=== PATIENT | female | born 1985 | race Caucasian/White ===

== ENCOUNTER 2020-08-07 14:33 | Emergency (ER) | payer MEDICAID ==
[2020-08-07 14:39] VITALS: RESP 18
[2020-08-07] MEDS ORDERED: SODIUM CHLORIDE 0.9% 1,000 ML IV STA (14:54)
--- NOTE | 2020-08-07 15:12 | ED ---
Abdominal Pain HPI - General Chief Complaint: Abdominal Pain Stated Complaint: abd pain, vomiting Time Seen by Provider: 08/07/20 14:47 Source: patient, RN notes reviewed Mode of arrival: ambulatory Limitations: no limitations - History of Present Illness Initial Comments: Patient is a 34-year-old female that presents to emergency department complaining of right lower quadrant pain with nausea and vomiting starting today. She notes that she woke up had some abdominal discomfort in the right lower quadrant became nauseous and had several episodes of vomiting. She notes that she went to her primary care who then told her to come emergency room to get evaluated for possible appendicitis. Patient was in no apparent distress or pain while sitting up in bed during the exam interview. She noted that her pain was approximately a 2 out of 10 and declined the need for any pain medication at this time. She denied any chest pain shortness breath headache diarrhea constipation fever fatigue chills. She did note that she has had gallbladder and pancreas issues in the past. - Related Data Home Medications Medication Instructions Recorded Confirmed ARIPiprazole [Abilify] 10 mg PO DAILY 08/07/20 08/07/20 Albuterol Inhaler [Ventolin Hfa 2 puff INHALATION RT-QID PRN 08/07/20 08/07/20 Inhaler] Desvenlafaxine [Pristiq ER] 100 mg PO DAILY 08/07/20 08/07/20 Ferrous Sulfate [Feosol] 325 mg PO DAILY 08/07/20 08/07/20 Methylphenidate HCl [Ritalin] 20 mg PO BID 08/07/20 08/07/20 Topiramate [Topamax] 100 mg PO HS 08/07/20 08/07/20 hydroCHLOROthiazide [Hydrodiuril] 25 mg PO DAILY PRN 08/07/20 08/07/20 Allergies Allergy/AdvReac Type Severity Reaction Status Date / Time erythromycin base Allergy Rash/Hives Verified 08/07/20 16:24 Review of Systems ROS Statement: Those systems with pertinent positive or pertinent negative responses have been documented in the HPI. ROS Other: All systems not noted in ROS Statement are negative. Past Medical History Past Medical History: No Reported History History of Any Multi-Drug Resistant Organisms: None Reported Past Surgical History: Cholecystectomy Past Anesthesia/Blood Transfusion Reactions: No Reported Reaction Past Psychological History: Depression Smoking Status: Never smoker Past Alcohol Use History: None Reported Past Drug Use History: None Reported - Past Family History Father Family Medical History: No Reported History General Exam Limitations: no limitations General appearance: alert, in no apparent distress Head exam: Present: atraumatic, normocephalic, normal inspection Eye exam: Present: normal appearance, PERRL, EOMI. Absent: scleral icterus, conjunctival injection, periorbital swelling Neck exam: Present: normal inspection Respiratory exam: Present: normal lung sounds bilaterally. Absent: respiratory distress, wheezes, rales, rhonchi, stridor Cardiovascular Exam: Present: regular rate, normal rhythm, normal heart sounds. Absent: systolic murmur, diastolic murmur, rubs, gallop, clicks GI/Abdominal exam: Present: soft, tenderness (Right lower quadrant to moderate palpation,), normal bowel sounds. Absent: distended, guarding, rebound, rigid Extremities exam: Present: normal inspection, full ROM, normal capillary refill. Absent: tenderness, pedal edema, joint swelling, calf tenderness Neurological exam: Present: alert, oriented X3 Psychiatric exam: Present: normal affect, normal mood Skin exam: Present: warm, dry, intact, normal color. Absent: rash Course Vital Signs 08/07/20 14:36 Temperature 97.9 F Pulse Rate 83 Respiratory 18 Rate Blood Pressure 105/69 O2 Sat by Pulse 96 Oximetry Medical Decision Making - Medical Decision Making 34-year-old female complaining of right lower quadrant pain with nausea and vomiting times one. Labs, 1 L normal saline, CT of the abdomen and pelvis ordered. Patient declined need for any pain medication or nausea medication at this time. Labs: White blood cells 11.[address] negative for appendicitis does not show any inflammatory processes. CT did show a 1.8; the right ovarian cyst. Case discussed with Dr. Malave, patient can discharge home in stable condition with follow-up primary care. - Lab Data Result diagrams: 08/07/20 15:06 08/07/20 15:06 Lab Results 08/07/20 08/07/20 08/07/20 Range/Units 15:06 15:06 15:06 WBC 11.9 H (3.8-10.6) k/uL RBC 4.40 (3.80-5.40) m/uL Hgb 12.9 (11.4-16.0) gm/dL Hct 38.2 (34.0-46.0) % MCV 86.9 (80.0-100.0) fL MCH 29.2 (25.0-35.0) pg MCHC 33.6 (31.0-37.0) g/dL RDW 14.5 (11.5-15.5) % Plt Count 259 (150-450) k/uL MPV 6.9 Neutrophils % 81 % Lymphocytes % 14 % Monocytes % 3 % Eosinophils % 1 % Basophils % 0 % Neutrophils # 9.7 H (1.3-7.7) k/uL Lymphocytes # 1.6 (1.0-4.8) k/uL Monocytes # 0.4 (0-1.0) k/uL Eosinophils # 0.2 (0-0.7) k/uL Basophils # 0.0 (0-0.2) k/uL Sodium (137-145) mmol/L Potassium (3.5-5.1) mmol/L Chloride (98-107) mmol/L Carbon Dioxide (22-30) mmol/L Anion Gap mmol/L BUN (7-17) mg/dL Creatinine (0.52-1.04) mg/dL Est GFR (CKD-EPI)AfAm (>60 ml/min/1.73 sqM) Est GFR (CKD-EPI)NonAf (>60 ml/min/1.73 sqM) Glucose (74-99) mg/dL Calcium (8.4-10.2) mg/dL Total Bilirubin (0.2-1.3) mg/dL AST (14-36) U/L ALT (4-34) U/L Alkaline Phosphatase (38-126) U/L Total Protein (6.3-8.2) g/dL Albumin (3.5-5.0) g/dL Amylase (30-110) U/L Lipase (23-300) U/L Urine Color Yellow Urine Appearance Cloudy H (Clear) Urine pH 7.0 (5.0-8.0) Ur Specific [place] 1.030 (1.001-1.035) Urine Protein Trace H (Negative) Urine Glucose (UA) Negative (Negative) Urine Ketones Trace H (Negative) Urine Blood Negative (Negative) Urine Nitrite Negative (Negative) Urine Bilirubin Negative (Negative) Urine Urobilinogen <2.0 (<2.0) mg/dL Ur Leukocyte Esterase Small H (Negative) Urine RBC 2 (0-5) /hpf Urine WBC 8 H (0-5) /hpf Ur Squamous Epith Cells 6 H (0-4) /hpf Urine Bacteria Rare H (None) /hpf Urine Mucus Few H (None) /hpf Urine HCG, Qual Not Detected (Not Detectd) 08/07/20 Range/Units 15:06 WBC (3.8-10.6) k/uL RBC (3.80-5.40) m/uL Hgb (11.4-16.0) gm/dL Hct (34.0-46.0) % MCV (80.0-100.0) fL MCH (25.0-35.0) pg MCHC (31.0-37.0) g/dL RDW (11.5-15.5) % Plt Count (150-450) k/uL MPV Neutrophils % % Lymphocytes % % Monocytes % % Eosinophils % % Basophils % % Neutrophils # (1.3-7.7) k/uL Lymphocytes # (1.0-4.8) k/uL Monocytes # (0-1.0) k/uL Eosinophils # (0-0.7) k/uL Basophils # (0-0.2) k/uL Sodium 137 (137-145) mmol/L Potassium 4.1 (3.5-5.1) mmol/L Chloride 110 H (98-107) mmol/L Carbon Dioxide 25 (22-30) mmol/L Anion Gap 2 mmol/L BUN 12 (7-17) mg/dL Creatinine 0.76 (0.52-1.04) mg/dL Est GFR (CKD-EPI)AfAm >90 (>60 ml/min/1.73 sqM) Est GFR (CKD-EPI)NonAf >90 (>60 ml/min/1.73 sqM) Glucose 89 (74-99) mg/dL Calcium 8.6 (8.4-10.2) mg/dL Total Bilirubin 0.4 (0.2-1.3) mg/dL AST 23 (14-36) U/L ALT 22 (4-34) U/L Alkaline Phosphatase 94 (38-126) U/L Total Protein 5.3 L (6.3-8.2) g/dL Albumin 3.1 L (3.5-5.0) g/dL Amylase 34 (30-110) U/L Lipase 45 (23-300) U/L Urine Color Urine Appearance (Clear) Urine pH (5.0-8.0) Ur Specific [place] (1.001-1.035) Urine Protein (Negative) Urine Glucose (UA) (Negative) Urine Ketones (Negative) Urine Blood (Negative) Urine Nitrite (Negative) Urine Bilirubin (Negative) Urine Urobilinogen (<2.0) mg/dL Ur Leukocyte Esterase (Negative) Urine RBC (0-5) /hpf Urine WBC (0-5) /hpf Ur Squamous Epith Cells (0-4) /hpf Urine Bacteria (None) /hpf Urine Mucus (None) /hpf Urine HCG, Qual (Not Detectd) - Radiology Data Radiology results: report reviewed, image reviewed CT of the abdomen and pelvis: Right ovarian cyst. Left peripelvic cyst. Nonobstructing renal stone in the mid inferior pole left kidney. Disposition Clinical Impression: Abdominal pain, Ovarian cyst Disposition: HOME SELF-CARE Condition: Stable Instructions (If sedation given, give patient instructions): Abdominal Pain (ED) Additional Instructions: Please return to the Emergency Department if symptoms worsen or any other concerns. Follow-up with primary care in next 3-5 days. Increase oral fluid intake. Take Tylenol and/or Motrin as needed for pain control. Is patient prescribed a controlled substance at d/c from ED?: No Referrals: Anny Gates DO [Primary Care Provider] - 1-2 days Time of Disposition: 16:55
[2020-08-07 15:21] LABS: Basophils % (A) 0 %; Eosinophils # (A) 0.2 k/uL (0-0.7); Eosinophils % (A) 1 %; HCT 38.2 % (34.0-46.0); HGB 12.9 gm/dL (11.4-16.0); Lymphocytes # (A) 1.6 k/uL (1.0-4.8); Lymphocytes % (A) 14 %; MCH 29.2 pg (25.0-35.0); MCHC 33.6 g/dL (31.0-37.0); MCV 86.9 fL (80.0-100.0); Mean Platelet Volume 6.9; Monocytes # (A) 0.4 k/uL (0-1.0); Monocytes % (A) 3 %; Neutrophils # (A) 9.7 k/uL (1.3-7.7); Neutrophils % (A) 81 %; Platelet Count 259 k/uL (150-450); RDW 14.5 % (11.5-15.5); WBC 11.9 k/uL (3.8-10.6)
[2020-08-07 15:28] LABS: Appearance,Urine Cloudy (Clear); Bacteria,Urine Rare /hpf; Bilirubin,Urine Negative (Negative); Blood,Urine Negative (Negative); Color,Urine Yellow; Glucose,Urine (UA) Negative (Negative); Ketones,Urine Trace (Negative); Leukocyte Esterase,Urine Small (Negative); Mucus,Urine Few /hpf; Nitrite,Urine Negative (Negative); Protein,Urine Trace (Negative); RBC,Urine 2 /hpf (0-5); Squamous Epithelial Cell,Urine 6 /hpf (0-4); Urobilinogen,Urine <2.0 mg/dL (<2.0); WBC,Urine 8 /hpf (0-5)
[2020-08-07 15:34] LABS: ALT 22 U/L (4-34); AST 23 U/L (14-36); African American GFR (CKD) >90 (>60 ml/min/1.73 sqM); Albumin 3.1 g/dL (3.5-5.0); Alkaline Phosphatase 94 U/L (38-126); Amylase 34 U/L (30-110); Anion Gap 2 mmol/L; Blood Urea Nitrogen 12 mg/dL (7-17); Calcium 8.6 mg/dL (8.4-10.2); Carbon Dioxide 25 mmol/L (22-30); Chloride 110 mmol/L (98-107); Glucose 89 mg/dL (74-99); Lipase 45 U/L (23-300); Non-African American GFR(CKD) >90 (>60 ml/min/1.73 sqM); Potassium 4.1 mmol/L (3.5-5.1); Sodium 137 mmol/L (137-145); Total Bilirubin 0.4 mg/dL (0.2-1.3); Total Protein 5.3 g/dL (6.3-8.2)
--- NOTE | 2020-08-07 16:23 | CT ---
EXAMINATION TYPE: CT abdomen pelvis w con DATE OF EXAM: 08/07/2020 COMPARISON: None INDICATION: RLQ pain with N/V DLP: 862.9 mGycm, Automated exposure control for dose reduction was used. CONTRAST: 100 mL of Isovue 300. Study performed without Oral Contrast TECHNIQUE: Axial images were obtained from above the diaphragm to the pubic rami in the axial plane a t 5 mm thick sections. Reconstructed images are reviewed on the computer in the coronal plane. FINDINGS: Limited CT sections are obtained the lung bases. The lung bases are clear. CT ABDOMEN: Liver: Normal Spleen: Normal Pancreas: Normal Adrenal glands: The adrenal glands are normal. Gallbladder: Surgically absent Kidneys: No masses are evident.Nonobstructing renal stone is at the mid to inferior pole measuring 0. 3 cm. No hydroureter is evident. Left peripelvic cysts are present. No hydronephrosis is evident. De layed images were obtained through the kidneys, which remain unremarkable. Aorta: Normal Inferior vena cava: Normal. CT PELVIS: Loops of bowel within the abdomen and pelvis are normal. There are loops of bowel which are incom pletely distended or lack oral contrast limiting their evaluation. Appendix: Not identified. No suspicious dilated tubular structure or inflammatory changes are evident . Urinary bladder: Normal. Genitourinary structures: Uterus is prominent. There may be a right adnexal cyst measuring 1.8 cm. Osseous structures: No suspicious lytic or sclerotic lesions. IMPRESSIONS: 1. Right ovarian cyst. 2. Left peripelvic cysts. A nonobstructing renal stone is in the mid inferior pole left kidney.
[2020-08-07 17:11] VITALS: BP 102/57; PULSE 88; TEMP 97.7
== END 2020-08-07 17:12 | disposition home or self-care (01) ==
LOC: EC 14:33
DX: N83.201 Unspecified ovarian cyst, right side (principal); F32.9 Major depressive disorder, single episode, unspecified; Z90.49 Acquired absence of other specified parts of digestive tract
CPT/HCPCS: 36415; 74177; 80053; 81001; 81025; 82150; 83690; 85025; 96360; 96361; 99284

== ENCOUNTER 2021-04-25 09:10 | Observation (INO) | payer MEDICAID, OTHER ==
[2021-04-25] MEDS ORDERED: SODIUM CHLORIDE 0.9% 1,000 ML IV STA (09:40)
[2021-04-25] MEDS ORDERED: ACETAMINOPHEN TAB 500 MG TAB PO STA (09:40)
[2021-04-25] MEDS ORDERED: DIPH,PERTUS(ACELL)TETVAC-LF 0.5 ML VIAL IM ONE (09:49)
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
[2021-04-25 10:21] LABS: ALT 70 U/L (4-34); AST 46 U/L (14-36); African American GFR (CKD) >90 (>60 ml/min/1.73 sqM); Albumin 4.1 g/dL (3.5-5.0); Alkaline Phosphatase 134 U/L (38-126); Anion Gap 9 mmol/L; Blood Urea Nitrogen 11 mg/dL (7-17); Carbon Dioxide 23 mmol/L (22-30); Chloride 108 mmol/L (98-107); Glucose 101 mg/dL (74-99); Non-African American GFR(CKD) 88 (>60 ml/min/1.73 sqM); Potassium 3.7 mmol/L (3.5-5.1); Sodium 140 mmol/L (137-145); Total Bilirubin 0.6 mg/dL (0.2-1.3); Total Protein 7.3 g/dL (6.3-8.2)
[2021-04-25 10:23] LABS: Basophils # (A) 0.1 k/uL (0-0.2); Basophils % (A) 0 %; Eosinophils # (A) 0.2 k/uL (0-0.7); Eosinophils % (A) 2 %; HCT 42.8 % (34.0-46.0); HGB 13.4 gm/dL (11.4-16.0); Lymphocytes # (A) 0.9 k/uL (1.0-4.8); Lymphocytes % (A) 8 %; MCH 28.8 pg (25.0-35.0); MCHC 31.4 g/dL (31.0-37.0); MCV 91.8 fL (80.0-100.0); Mean Platelet Volume 7.2; Monocytes # (A) 0.5 k/uL (0-1.0); Monocytes % (A) 5 %; Neutrophils # (A) 9.4 k/uL (1.3-7.7); Neutrophils % (A) 84 %; Platelet Count 270 k/uL (150-450); RBC 4.66 m/uL (3.80-5.40); RDW 14.2 % (11.5-15.5); WBC 11.1 k/uL (3.8-10.6)
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
[2021-04-25 12:25] LABS: Appearance,Urine Cloudy (Clear); Bacteria,Urine Few /hpf; Bilirubin,Urine Negative (Negative); Blood,Urine Large (Negative); Color,Urine Yellow; Glucose,Urine (UA) Negative (Negative); Ketones,Urine 2+ (Negative); Leukocyte Esterase,Urine Small (Negative); Mucus,Urine Occasional /hpf; Nitrite,Urine Negative (Negative); Protein,Urine 1+ (Negative); RBC,Urine >182 /hpf (0-5); Specific Gravity,Urine 1.021 (1.001-1.035); Squamous Epithelial Cell,Urine <1 /hpf (0-4); Urobilinogen,Urine <2.0 mg/dL (<2.0); WBC,Urine 28 /hpf (0-5)
--- NOTE | 2021-04-25 12:41 | XR ---
EXAMINATION TYPE: XR chest 1V portable DATE OF EXAM: 04/25/2021 COMPARISON: NONE HISTORY: Chest pain TECHNIQUE: Single frontal view of the chest is obtained. FINDINGS: There is no focal air space opacity, pleural effusion, or pneumothorax seen. The cardiac silhouette size is within normal limits. The osseous structures are intact. IMPRESSION: 1. No acute process.
--- NOTE | 2021-04-25 12:41 | XR ---
EXAMINATION TYPE: XR Hip Complete RT DATE OF EXAM: 04/25/2021 CLINICAL HISTORY: pain TECHNIQUE: AP and frogleg views of the right hip are obtained. COMPARISON: None. FINDINGS: There is no acute fracture/dislocation evident. The joint space appears within normal li mits. The overlying soft tissue appears unremarkable. IMPRESSION: 1. There is no acute fracture or dislocation. ICD 10 NO FRACTURE, INITIAL EVALUATION
--- NOTE | 2021-04-25 12:47 | XR ---
EXAMINATION TYPE: XR knee complete bilateral DATE OF EXAM: 04/25/2021 CLINICAL HISTORY: pain TECHNIQUE: Three views of the right knee are obtained. COMPARISON: None. FINDINGS: There is no acute fracture/dislocation. The tri-compartment joint spaces appear within no rmal limits. The overlying soft tissue appears unremarkable. IMPRESSION: There is no acute fracture or dislocation.ICD 10 NO FRACTURE, INITIAL EVALUATION EXAMINATION TYPE: XR knee complete bilateral DATE OF EXAM: 04/25/2021 CLINICAL HISTORY: pain TECHNIQUE: Three views of the left knee are obtained. COMPARISON: None. FINDINGS: There is no acute fracture/dislocation. The tri-compartment joint spaces appear within no rmal limits. The overlying soft tissue appears unremarkable. IMPRESSION: There is no acute fracture or dislocation ICD 10 NO FRACTURE, INITIAL EVALUATION
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
[2021-04-25] MEDS ORDERED: ONDANSETRON 4 MG/2 ML VIAL IVP STA (14:38)
[2021-04-25] MEDS ORDERED: MORPHINE SULFATE 4 MG/ML SYRINGE IV STA (14:38)
[2021-04-25] MEDS ORDERED: ONDANSETRON 4 MG/2 ML VIAL IVP PRN ×2 (14:39→15:33)
[2021-04-25] MEDS ORDERED: NALOXONE 0.4 MG/ML 1 ML VIAL IV PRN (14:39)
[2021-04-25] MEDS ORDERED: SODIUM CHLORIDE 0.9% 1,000 ML IV SCH (14:45)
[2021-04-25] MEDS ORDERED: ACETAMINOPHEN TAB 325 MG TAB PO PRN (15:33)
[2021-04-25] MEDS ORDERED: MORPHINE SULFATE 4 MG/ML SYRINGE IVP PRN (15:33)
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
[2021-04-25] MEDS ORDERED: LACTATED RINGERS 1,000 ML IV SCH (15:45)
[2021-04-25 16:14] LABS: HCT 34.6 % (34.0-46.0); HGB 11.5 gm/dL (11.4-16.0); MCH 30.4 pg (25.0-35.0); MCHC 33.3 g/dL (31.0-37.0); MCV 91.2 fL (80.0-100.0); Mean Platelet Volume 7.4; Platelet Count 237 k/uL (150-450); RBC 3.79 m/uL (3.80-5.40); RDW 14.4 % (11.5-15.5); WBC 8.1 k/uL (3.8-10.6)
[2021-04-25] MEDS ORDERED: ARIPiprazole 10 MG TAB PO SCH (21:00)
[2021-04-25] MEDS ORDERED: DESVENLAFAXINE SUCCINATE 50 MG TAB.ER.24H PO SCH (21:00)
[2021-04-25] MEDS: MORPHINE SULFATE 4 MG/ML SYRINGE IV PRN (21:11)
[2021-04-25] MEDS: busPIRone HCl 5 MG TAB PO SCH (21:11)
[2021-04-25 22:08] LABS: Basophils % (A) 1 %; Eosinophils # (A) 0.2 k/uL (0-0.7); Eosinophils % (A) 3 %; HCT 37.8 % (34.0-46.0); HGB 12.4 gm/dL (11.4-16.0); Lymphocytes # (A) 1.2 k/uL (1.0-4.8); Lymphocytes % (A) 17 %; MCHC 32.9 g/dL (31.0-37.0); MCV 91.3 fL (80.0-100.0); Mean Platelet Volume 7.4; Monocytes # (A) 0.5 k/uL (0-1.0); Monocytes % (A) 8 %; Neutrophils # (A) 4.9 k/uL (1.3-7.7); Neutrophils % (A) 71 %; Platelet Count 252 k/uL (150-450); RBC 4.14 m/uL (3.80-5.40); RDW 14.4 % (11.5-15.5); WBC 6.9 k/uL (3.8-10.6)
[2021-04-26 02:56] VITALS: RESP 16
[2021-04-26] MEDS: MORPHINE SULFATE 4 MG/ML SYRINGE IV PRN ×2 (02:58→08:10)
[2021-04-26] MEDS: busPIRone HCl 5 MG TAB PO SCH (08:09)
[2021-04-26 08:16] VITALS: BP 132/71; PULSE 95; TEMP 98.8
[2021-04-26] MEDS ORDERED: ATOMOXETINE HCL 40 MG PO SCH (09:00)
[2021-04-26 09:12] LABS: Basophils % (A) 0 %; Eosinophils # (A) 0.3 k/uL (0-0.7); Eosinophils % (A) 5 %; HCT 38.7 % (34.0-46.0); HGB 12.2 gm/dL (11.4-16.0); Hypochromasia Slight; Lymphocytes # (A) 0.9 k/uL (1.0-4.8); Lymphocytes % (A) 17 %; MCH 29.1 pg (25.0-35.0); MCHC 31.5 g/dL (31.0-37.0); MCV 92.2 fL (80.0-100.0); Monocytes # (A) 0.4 k/uL (0-1.0); Monocytes % (A) 7 %; Neutrophils # (A) 3.5 k/uL (1.3-7.7); Neutrophils % (A) 68 %; Platelet Count 250 k/uL (150-450); RDW 14.8 % (11.5-15.5); WBC 5.1 k/uL (3.8-10.6)
[2021-04-26 09:30] LABS: ALT 58 U/L (4-34); AST 41 U/L (14-36); African American GFR (CKD) >90 (>60 ml/min/1.73 sqM); Albumin 3.3 g/dL (3.5-5.0); Alkaline Phosphatase 102 U/L (38-126); Anion Gap 4 mmol/L; Blood Urea Nitrogen 10 mg/dL (7-17); Calcium 8.1 mg/dL (8.4-10.2); Carbon Dioxide 24 mmol/L (22-30); Chloride 110 mmol/L (98-107); Glucose 111 mg/dL (74-99); Non-African American GFR(CKD) >90 (>60 ml/min/1.73 sqM); Sodium 138 mmol/L (137-145); Total Bilirubin 0.3 mg/dL (0.2-1.3); Total Protein 6.2 g/dL (6.3-8.2)
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
== END 2021-04-26 11:28 | disposition home or self-care (01) ==
LOC: EC 09:10 → 6NMEDSUR 14:54 → 3SCARD 15:27
PROVIDERS: ADMIT Surgery; ATTEND Surgery
DX: S70.01XA Contusion of right hip, initial encounter (principal); S16.1XXA Strain of muscle, fascia and tendon at neck level, initial encounter; S80.01XA Contusion of right knee, initial encounter; S80.02XA Contusion of left knee, initial encounter; R10.9 Unspecified abdominal pain; S60.511A Abrasion of right hand, initial encounter; N30.01 Acute cystitis with hematuria; F41.9 Anxiety disorder, unspecified; F32.A Depression, unspecified; M43.10 Spondylolisthesis, site unspecified; V89.2XXA Person injured in unspecified motor-vehicle accident, traffic, initial encounter; Y92.410 Unspecified street and highway as the place of occurrence of the external cause; Z79.899 Other long term (current) drug therapy; Z88.1 Allergy status to other antibiotic agents; Z90.49 Acquired absence of other specified parts of digestive tract
CPT/HCPCS: 96376 ×2; 90471; 96361; 96374; 96375; 99285; 36415; 86900; 86901; 80053 ×2; 85025 ×2; 85027; 85610; 86850; 81001; 81025; 87086; 73562; 73502; 71045; 72125; 74177; 90715; G0378 ×2; J2270 ×2; J2405; Q9967

== ENCOUNTER → 2021-05-22 | Outpatient (CLI) | payer MEDICAID, OTHER ==
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
== END | disposition home or self-care (01) ==
LOC: RADUSWWP 06:55
PROVIDERS: ATTEND Family Medicine
DX: S37.812A Contusion of adrenal gland, initial encounter (principal); N83.202 Unspecified ovarian cyst, left side; Z90.49 Acquired absence of other specified parts of digestive tract; V99.XXXA Unspecified transport accident, initial encounter
CPT/HCPCS: 76700; 76856

== ENCOUNTER → 2021-06-06 | Outpatient (CLI) | payer OTHER, MEDICAID ==
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
== END | disposition home or self-care (01) ==
LOC: RADCTMAIN 15:07
PROVIDERS: ATTEND Family Medicine
DX: R10.9 Unspecified abdominal pain (principal); Z87.828 Personal history of other (healed) physical injury and trauma
CPT/HCPCS: 74170; Q9967

== ENCOUNTER → 2021-06-27 | Outpatient (CLI) | payer MEDICAID, OTHER ==
--- NOTE | 2021-06-29 10:37 | US ---
EXAMINATION TYPE: US thyroid st tissue head/neck DATE OF EXAM: 06/27/2021 COMPARISON: NONE CLINICAL HISTORY: Z83.49 Family history elian disease. Difficulty swallowing GLAND SIZE: Right Lobe: 4.7 x 1.3 x 1.7 cm Overall Parenchyma: homogenous Left Lobe: 4.9 x 1.1 x 1.3 cm Overall Parenchyma: homogeneous Isthmus Thickness: 0.3 cm NODULES RIGHT: # of nodules measured on right: 1 1. 0.8 X 0.7 x 0.8 cm, lower mid, solid or almost completely solid, hypoechoic nodule, which is wid er than tall, with ill-defined margins, without echogenic foci. TR 4 Prior size: no previous LEFT: # of nodules measured on left: 0 ISTHMUS: # of nodules measured in the isthmus: 1 1. 0.6 X 0.4 x 0.6 cm solid or almost completely solid, hypoechoic nodule, which is wider than tall , with ill-defined margins, without echogenic foci. Prior size: no previous Bilateral neck scanned, no evidence of lymphadenopathy. IMPRESSION: Moderately suspicious nodule right lobe thyroid. Consider follow-up exam in one year. 2017 ACR TI-RADS LEVEL: TR-RADS 4 - Moderately Suspicious: Follow if > 1 cm, FNA if > 1.5 cm *Highest TI-RADS level nodule reported
== END | disposition home or self-care (01) ==
LOC: RADUSWWP 16:18
PROVIDERS: ATTEND Family Medicine
DX: R13.10 Dysphagia, unspecified (principal); Z83.49 Family history of other endocrine, nutritional and metabolic diseases
CPT/HCPCS: 76536

== ENCOUNTER → 2022-06-08 | Outpatient (CLI) | payer MEDICAID, OTHER ==
[2022-06-08 16:44] LABS: Basophils # (A) 0.04 X 10*3/uL (0.00-0.10); Basophils % (A) 0.5 %; Eosinophils # (A) 0.25 X 10*3/uL (0.04-0.35); Eosinophils % (A) 2.9 %; HCT 42.3 % (37.2-46.3); HGB 12.8 g/dL (12.0-15.0); Immature Grans, Automated 0.5 %; Lymphocytes # (A) 2.06 X 10*3/uL (0.90-5.00); Lymphocytes % (A) 23.8 %; MCH 27.1 pg (27.0-32.0); MCHC 30.3 g/dL (32.0-37.0); MCV 89.6 fL (80.0-97.0); Mean Platelet Volume 9.8 fL (9.5-12.2); Monocytes # (A) 0.53 X 10*3/uL (0.20-1.00); Monocytes % (A) 6.1 %; NRBC Per 100 WBC 0 /100 WBCS (0.0-0.0); Neutrophils # (A) 5.75 X 10*3/uL (1.80-7.70); Neutrophils % (A) 66.2 %; Platelet Count 330 X 10*3/uL (140-440); RBC 4.72 X 10*6/uL (4.10-5.20); RDW 14.9 % (11.5-14.5); WBC 8.67 X 10*3/uL (4.50-10.00)
[2022-06-08 17:05] LABS: African American GFR (CKD) 88.7 (60.0-200.0); Anion Gap 9.5 mmol/L (10.00-18.00); Blood Urea Nitrogen 12.4 mg/dL (9.0-27.0); Carbon Dioxide 25.1 mmol/L (20.0-27.5); Non-African American GFR(CKD) 76.5 (60.0-200.0); Potassium 4.5 mmol/L (3.5-5.5)
== END | disposition home or self-care (01) ==
LOC: LABPAT 09:15
PROVIDERS: ATTEND Obstetrics & Gynecology
DX: Z01.812 Encounter for preprocedural laboratory examination (principal); N39.3 Stress incontinence (female) (male); N80.03 Adenomyosis of the uterus
CPT/HCPCS: 36415; 80051; 82565; 84520; 85025; 87086

== ENCOUNTER 2022-06-16 05:53 | Observation (INO) | payer MEDICAID, OTHER ==
[2022-06-10 10:55] VITALS: BMI 31.8
--- NOTE | 2022-06-12 09:24 | P.HPOB ---
History of Present Illness H&P Date: 06/12/22 Chief Complaint: Abnormal uterine bleeding, stress incontinence Ms. Polk is a 36 year old who presents for surgical management of abnormal bleeding, adenomyosis, and stress urinary incontinence. She has regular monthly menses that are excessively heavy. She needs to change a maxi pad every 45 minutes on the heaviest day of flow. She denies intermenstrual bleeding. She has had a tubal ligation for contraception. She also complaints of stress incontinence with cough/sneeze/laugh/lifting. She has 2 accidents daily and wears 3 pads daily for leaks. She also complains or urge-related accidents every few days. She has a bulge in the vagina she call feel, this comes and goes. Pelvic ultrasound shows an anteverted uterus 6 x 4 cm. Adenomyosis is present. There is also a 1cm hyperechoic nodule noted in the left ovary that could represent a dermoid cyst versus a resolving corpus luteum cyst. Endometrial biopsy 03/16/22 was negative for dysplasia and malignancy. Pap smear March of 2022 was NILM, HPV negative Past Medical History Past Medical History: No Reported History Additional Past Medical History / Comment(s): OVARIAN CYST. adenomyosis. abnormal uterine bleeding. anxiety, depression History of Any Multi-Drug Resistant Organisms: None Reported Past Surgical History: Cholecystectomy, Tubal Ligation Additional Past Surgical History / Comment(s): D & C Past Anesthesia/Blood Transfusion Reactions: No Reported Reaction Smoking Status: Never smoker - Past Family History Father Family Medical History: No Reported History Medications and Allergies Home Medications Medication Instructions Recorded Confirmed Type Desvenlafaxine [Pristiq ER] 100 mg PO HS 08/07/20 06/10/22 History Brexpiprazole [Rexulti] 2 mg PO DAILY 06/10/22 06/10/22 History Methylphenidate HCl [Ritalin] 20 mg PO BID 06/10/22 06/10/22 History Allergies Allergy/AdvReac Type Severity Reaction Status Date / Time erythromycin base Allergy Rash/Hives Verified 06/10/22 10:46 Exam Focused physical exam is performed. Post-void residual 25cc. Normal external female genitalia. Normal vaginal vault without any defects. Normal-appearing cervix. Anteverted uterus, non-enlarged, non-tender. Assessment and Plan Assessment: 36 year old presenting for surgical management of AUB-A and OSCAR. Plan: Risks, benefits and alternatives for TVT Midurethral Sling discussed with the patient including pessary, kegels, pelvic floor therapy. Risks of procedure reviewed in detail including bleeding, infection, bladder perforation, urinary retention, urinary tract infection, and vaginal mesh erosion. Risks, benefits, alternatives to treat adenomyosis discussed including risk of bleeding, infection, damage to surrounding structures including bladder/bowels/urerters, risk of laparotomy, risk of oophotectomy, and postoperative VTE. Patient understands these risks and desires to proceed with RAVH, BS, TVT Midurethral Sling, and Cystoscopy. Time with Patient: Less than 30 (15 minutes)
[2022-06-16] MEDS ORDERED: LIDOCAINE 1% (10MG/ML) FOR IV START INTRADERMA PRN (06:25)
[2022-06-16] MEDS ORDERED: MIDAZOLAM 2 MG/2 ML VIAL IV PRN (06:25)
[2022-06-16] MEDS ORDERED: HYDROmorphone 0.5 MG/0.5 ML SYRINGE IVP PRN (06:25)
[2022-06-16] MEDS ORDERED: ONDANSETRON 4 MG/2 ML VIAL ONE (06:28)
[2022-06-16] MEDS ORDERED: MIDAZOLAM 2 MG/2 ML VIAL IVP ONE (06:48)
[2022-06-16] MEDS: LACTATED RINGERS 1,000 ML IV SCH ×3 (06:50→20:13)
[2022-06-16] MEDS ORDERED: DEXAMETHASONE SOD PHOSPHATE 4 MG/ML 1 ML VIAL IVP ONE (07:06)
[2022-06-16] MEDS ORDERED: diphenhydrAMINE 50 MG/ML 1 ML VIAL ONE (07:25)
[2022-06-16] MEDS ORDERED: GLYCOPYRROLATE 0.2 MG/ML 2 ML VIAL ONE (07:25)
[2022-06-16] MEDS ORDERED: MORPHINE SULFATE (PF) 0.3 MG/0.3 ML SYR ONE (07:25)
[2022-06-16] MEDS ORDERED: SUCCINYLCHOLINE CHLORIDE 200 MG/10 ML VIAL IV ONE (07:25)
[2022-06-16] MEDS ORDERED: NEOSTIGMINE 1 MG/ML 10 ML VIAL ONE (07:25)
[2022-06-16] MEDS ORDERED: ROCURONIUM 10 MG/ML (5 ML VIAL) IV ONE (07:25)
[2022-06-16] MEDS ORDERED: fentaNYL (PF) 50 MCG/ML 2 ML AMP ONE (07:25)
[2022-06-16] MEDS ORDERED: MIDAZOLAM 2 MG/2 ML VIAL ONE (07:25)
[2022-06-16] MEDS ORDERED: LIDOCAINE 2% INJ 20 MG/ML (2 ML VIAL) ONE (07:25)
[2022-06-16] MEDS ORDERED: PROPOFOL 10 MG/ML 20 ML VIAL IV ONE (07:25)
[2022-06-16] MEDS ORDERED: BUPIVACAINE (PF) 0.25% 30 ML VIAL SQ ONE ×2 (08:10→09:18)
[2022-06-16] MEDS ORDERED: GENTAMICIN 40 MG/ML 2 ML VIAL IRRIGATION ONE ×2 (08:11→09:19)
[2022-06-16] MEDS ORDERED: LACTATED RINGERS 1,000 ML IV ONE ×2 (09:38)
[2022-06-16] MEDS ORDERED: diphenhydrAMINE 50 MG/ML 1 ML VIAL IVP PRN (10:10)
[2022-06-16] MEDS ORDERED: IBUPROFEN 600 MG TAB PO PRN (10:10)
[2022-06-16] MEDS ORDERED: ONDANSETRON 4 MG/2 ML VIAL IVP PRN (10:10)
--- NOTE | 2022-06-16 10:30 | P.OP ---
Date of Procedure: 06/16/22 Preoperative Diagnosis: 1. Abnormal Uterine Bleeding 2. Adenomyosis 3. Stress Urinary Incontinence Postoperative Diagnosis: Same Procedure(s) Performed: Robotic assisted total laparoscopic hysterectomy, bilateral salpingectomy, TVT Midurethral Sling, and Cystoscopy Implants: Advantage Fit TVT Midurethral Sling Anesthesia: JOSELIN Surgeon: Ruth Ann Caro Theatre Instructor #1: Kathleen Ellis Estimated Blood Loss (ml): 200 IV fluids (ml): 1,000 Urine output (ml): 200 (clear) Pathology: other (uterus, cervix, and potions of bilateral fallopian tubes) Condition: stable Disposition: floor Indications for Procedure: This is a 36 year old female with abnormal uterine bleeding that did not improve with medications. Ultrasound showed adenomyosis. She also had stress urinary incontinence that was reproducible in the office. Post-void residual was noted to be 20 cc in the office. Risks, benefits and alternatives for TVT Midurethral Sling discussed with the patient including pessary, kegels, pelvic floor therapy. Risks of procedure reviewed in detail including bleeding, infection, bladder perforation, urinary retention, urinary tract infection, and vaginal mesh erosion. Risks, benefits, alternatives to treat adenomyosis discussed including risk of bleeding, infection, damage to surrounding structures including bladder/bowels/urerters, risk of laparotomy, risk of oophotectomy, and postoperative VTE. Patient understands these risks and desires to proceed with RAVMarce, BS, TVT Midurethral Sling, and Cystoscopy. Operative Findings: Normal pelvis and abdomen. Bulky uterus. Portions of bilateral fallopian tubes absent s/p tubal ligation. Grossly normal appearing ovaries bilaterally. Normal appearing appendix. No bladder injuries seen on cystoscopy from hysterectomy or TVT trocar placement. Bilateral ureteral jets visualized. Description of Procedure: Prior to the beginning of the procedure, the team paused to verify the patients identity, the procedure to be performed (in accordance with the consent,) and the correct side/site. The patient was positioned appropriately. All relevant images and results were properly labeled and displayed. We addressed antibiotic prophylaxis and fluids for irrigation as applicable to this patient. Any safety precautions were addressed. The patient was taken to the operating room where general anesthesia was induced without difficulty. She was then positioned in the dorsal lithotomy position [facility]. Positioning included placing her arms at her sides. After the patient was placed in what was felt to be a neurologically safe position, deep Trendelenburg position was tested prior to the operative procedure, to ensure that she would not move on the operating t able. The patient was then prepped and draped in the normal sterile fashion for a combined abdominovaginal surgery. A Sosa catheter was placed in the bladder for continuous drainage. Uterus was sounded to 10 cm. The Log[employer]ic manipulator was placed in the uterus for manipulation. Attention was then placed to the abdomen. 2 centimeters above the umbilicus, the abdomen was entered with the 8mm trocar under direct visualization. The abdomen was then insufflated to 15mmHg for the remainder of the case and correct placement inside of the abdomen was confirmed. There was no evidence of injury from the trocar placement. Visualization of the intraabdominal cavity showed normal pelvic anatomy without evidence of adhesions. The port sites for the remainder of the case were then measured out and placed under direct visualization. On the left side, one 8 mm robotic assist port and one 10 mm assist port were placed. On the right side, one 8 mm robotic port was placed. The [employer] robot was then brought to the operative field in a lateral docking style to the left of the patient and the robot was docked to the ports. All robotic instruments were brought into the pelvis under direct visualization with monopolar scissors in arm #3 and vessel sealer in arm #1. Bilateral ureters were visualized prior to starting the surgery. A portion of the right fallopian tube was ligated and cut away. This was removed from through the port site. The right uteroovarian ligement was cauterized and cut. The right round ligament was cauterized and cut. Broad ligament was opened and bladder flap created. This was repeated on the left side. The peritoneum of the bilateral broad ligaments was then taken down and monopolar cautery used to skeletonize the uterine arteries bilaterally. During the course of this dissection, the anterior leaf of the broad ligament was also taken down over the anterior aspect of the uterus and cervix to create a bladder flap. The bladder was then dissected off the cervix and upper vagina with the monopolar scissors and gentle blunt dissection. The bilateral uterine arteries were then cauterized and divided at the level of the internal cervical os. The monopolar cautery was used to incise the vaginal cuff. The uterus, along with the cervix was removed vaginally. Cuff was closed in with 0-Stratifix sutures. Surgicel was placed along the pedicles and vaginal cuff for bleeding prophylaxis. Excellent hemostasis was noted at this time. The robot was undocked from the trocars and brought out of the operative field. The remainder of the ports were removed, and the gas was allowed to escape. All skin incisions were closed with 4-0 Monocryl and dermabond. Attention was then turned to the TVT part of the procedure. Two sites were marked on the anterior abdominal wall with a marking pen, one 1 fingerbreadth to the left and the other 1 fingerbreadth to the right of the midline, just above the pubic bone.Two sites were marked on the anterior abdominal wall with a marking pen, one 1 fingerbreadth to the left and the other 1 fingerbreadth to the right of the midline, just above the pubic bone. Attention was now turned to the vaginal field where a 18-Haitian Sosa c atheter was already present, and the urine was drained. Retractors were used for visualization. The anterior vaginal wall over the location of the mid urethra was then injected with 1% marcaine in the mid portion of the vagina and the lateral aspects heading to the inferior surface of the pubic bone bilaterally. Two Allis clamps were then placed approximately 2 cm apart with the mid portion of the Allis clamps corresponding to the mid portion of the urethra as determined by palpation of the Sosa within the patient's urethra. A scalpel was then used to incise between the 2 Allis clamps, and Metzenbaum scissors were used to dissect the vaginal mucosa off the urethra heading to the inferior surface of the pubic bone bilaterally. The [employer] Advantage Fit TVT trocar coupled to the plastic introducer sheath was now placed through the right sided anterior vaginal wall channel, and the trocar was rotated through the right retropubic space with careful attention being paid to stay beneath and behind the pubic bone as it rotated through the space up to the previously made janey on the right anterior abdominal wall. The TVT trocar was uncoupled from the introducer sheath and the sheath was tagged and left in place. The TVT trocar was now placed into the second introducer sheath and positioned within the left anterior vaginal wall channel and rotated through the left retropubic space with careful attention being paid to stay beneath and behind the pubic bone as it rotated through this site up to the previously made janey on the left anterior abdominal wall. 70-degree cystourethroscope was used to confirm that there was no trocar placement trauma to the bladder from either side, and no trauma to the urethra. Bilateral ureteral jets were visualized. Therefore, the bladder was drained, and the mesh was brought through the abdominal wall site. The mesh was brought to sit underneath of the urethra without any tensioning at all as determined by a hemostat used as a spacer between the urethra and the sling. The hemostat as a spacer was used to stabilize the position of the mesh as plastic sheaths were removed through the abdominal wall site. The skin wounds were closed with the use of skin glue after trimming the mesh. The vaginal wound was closed with a running stitch of 3-0 Vicryl. 1-inch vaginal packing coated with Estrace was used to pack the vagina at the end of the case as a precautionary measure. Hemostasis was noted to be excellent throughout, and final sponge, instrument, and needle count was noted to be correct. The patient was moved back to the preoperative holding area in stable condition having tolerated the procedure well.
[2022-06-16] MEDS: KETOROLAC 15 MG/ML 1 ML VIAL IVP PRN ×2 (12:04→18:01)
[2022-06-16] MEDS: METOCLOPRAMIDE 5 MG/ML 2 ML VIAL IVP PRN (15:14)
[2022-06-17] MEDS: LACTATED RINGERS 1,000 ML IV SCH ×2 (04:08→07:22)
[2022-06-17 06:55] LABS: Basophils % (A) 0 %; Eosinophils % (A) 0 %; HCT 32.2 % (34.0-46.0); HGB 10.3 gm/dL (11.4-16.0); Lymphocytes # (A) 1.3 k/uL (1.0-4.8); Lymphocytes % (A) 14 %; MCH 28.4 pg (25.0-35.0); MCHC 31.9 g/dL (31.0-37.0); MCV 88.9 fL (80.0-100.0); Mean Platelet Volume 7.4; Monocytes # (A) 0.5 k/uL (0-1.0); Monocytes % (A) 6 %; Neutrophils % (A) 78 %; Platelet Count 249 k/uL (150-450); RBC 3.62 m/uL (3.80-5.40); RDW 14.8 % (11.5-15.5)
[2022-06-17] MEDS: ACETAMINOPHEN TAB 325 MG TAB PO PRN ×2 (07:21→14:04)
[2022-06-17] MEDS: METOCLOPRAMIDE 5 MG/ML 2 ML VIAL IVP PRN (07:21)
--- NOTE | 2022-06-17 07:28 | P.PN ---
Progress Note - Text Progress Note Date: 06/17/22 Postoperative day 1 status post robotic hysterectomy under general endotracheal anesthesia, and intrathecal morphine given for postoperative analgesia, patient doing well, but patient complaining of some headache, headache increased with the sitting position, discussed with the patient the option of doing epidural blood patch, but patient currently prefer to try conservative treatment caffeinated fluid/Motri,, vital signs stable , Assessment and plan= postop day 1 status post robotic hysterectomy and intrathecal morphine given for postoperative analgesia, questionable headache., We'll try conservative treatment first if failed then will do epidural blood patch
[2022-06-17] MEDS: KETOROLAC 15 MG/ML 1 ML VIAL IVP PRN (07:57)
--- NOTE | 2022-06-17 08:36 | P.PN ---
Subjective Progress Note Date: 06/17/22 Principal diagnosis: s/p robotic hysterectomy with bilateral salpingectomy, TVT midurethral sling, Cystoscopy Patient had severe nausea, vomiting, and headache overnight. Vomiting was not improved with zofran. Headache not resolved with motrin or tylenol. This morning she had reglad, toradol, and benadryl. She is feeling much better. She rates her headache a 2 and her nausea has resolved. Patient is eager to go home but I discussed that she must be able to tolerate PO, be able to ambulate without difficulty, and must be voiding adequately before discharge. Sosa was removed this morning but she has yet to void. She is not yet passing flatus. Vaginal spotting has been minimal. She denies chest pain, shortness of breath, pain/swelling in the legs, fevers or chills. Objective - Vital Signs Vital signs: Vital Signs Temp 97.9 F 06/17/22 01:49 Pulse 85 06/17/22 07:22 Resp 18 06/17/22 01:49 BP 100/67 06/17/22 01:49 Pulse Ox 97 06/17/22 07:22 FiO2 Intake & Output 06/16/22 06/17/22 06/17/22 18:59 06:59 18:59 Intake Total 1550 300 Output Total 800 410 Balance 750 -110 Weight 83.2 kg Intake: IV 1550 Oral 300 Output: Urine 600 400 Uretheral (Sosa) 100 Emesis 10 Estimated Blood Loss 200 Other: Voiding Method Indwelling Catheter - Exam Focused physical exam is performed. Patient is pleasant, in no apparent distress. Abdomen is soft, nontender. Hypoactive bowel sounds are noted. Incisions are clean, dry, and intact x6. Minimal pink discharge on menstrual pa d. Legs non-edematous and non-tender to palpation. - Labs CBC & Chem 7: 06/17/22 06:14 Labs: Abnormal Lab Results - Last 24 Hours (Table) 06/17/22 Range/Units 06:14 RBC 3.62 L (3.80-5.40) m/uL Hgb 10.3 L (11.4-16.0) gm/dL Hct 32.2 L (34.0-46.0) % Assessment and Plan Assessment: 36 year old presenting for surgical management of AUB-A and OSCAR now POD#1 s/p JORDYN LONG, TVT Midurethral Sling, and Cystoscopy. Plan: Patient not yet eligible for discharge. If voiding, ambulating, and tolerating PO this afternoon she may be discharged at that time. Otherwise, anticipate discharge home tomorrow. Encouraged ambulation and incentive spirometer use today. Time with Patient: Less than 30 (15 minutes)
[2022-06-17 09:07] VITALS: RESP 15
--- NOTE | 2022-06-17 13:09 | P.DS ---
Providers Date of admission: 06/16/22 10:00 Expected date of discharge: 06/17/22 Attending physician: Ruth Ann Caro MD Primary care physician: Anny Gates [facility] Course: 36 year old female who is postoperative day 1 s/p Robotic TLH, bilateral salpingectomy, TVT Midurethral Sling, and Cystoscopy. She had severe nausea and headache overnight on postoperative day 0. This afternoon she is feeling much better. She is ambulating, tolerating PO, voiding adequately and without difficulty. She denies chest pain, shortness of breath, pain/swelling in the legs. She desires discharge home. We discussed a lifting restriction of nothing heavier than 15 lbs for 4 weeks. She also needs to be on pelvic rest for 6 weeks. She is encouraged to call the office with any concerns or if she experiences heavy bleeding, severe pain, or recurrent nausea/vomiting. She will follow up in the office in 2 weeks for incision check. Assessment: 36 yo POD#1 s/p RATLH, BS, TVT, and Cystoscopy Patient Condition at Discharge: Good Plan - Discharge Summary Discharge Rx Participant: No New Discharge Prescriptions: No Action Desvenlafaxine [Pristiq ER] 100 mg PO HS Methylphenidate HCl [Ritalin] 20 mg PO BID Brexpiprazole [Rexulti] 2 mg PO DAILY Discharge Medication List Desvenlafaxine [Pristiq ER] 100 mg PO HS 08/07/20 [History] Brexpiprazole [Rexulti] 2 mg PO DAILY 06/10/22 [History] Methylphenidate HCl [Ritalin] 20 mg PO BID 06/10/22 [History] Follow up Appointment(s)/Referral(s): Ruth Ann Caro MD [STAFF PHYSICIAN] - 2 Weeks (post-op visit) Patient Instructions/Handouts: Laparoscopic Hysterectomy (DC), Bladder Sling for Women (DC) Activity/Diet/Wound Care/Special Instructions: No lifting heavier than 15 pounds for 4 weeks. Nothing in the vagina to include sexual intercourse for 6 weeks. Discharge Disposition: HOME SELF-CARE
[2022-06-17 14:38] VITALS: BP 103/65; PULSE 80; TEMP 98.6
== END 2022-06-17 14:25 | disposition home or self-care (01) ==
LOC: OR 05:53 → 4FBP 10:00
PROVIDERS: ADMIT Obstetrics & Gynecology; ATTEND Obstetrics & Gynecology
DX: N93.9 Abnormal uterine and vaginal bleeding, unspecified (principal); N39.3 Stress incontinence (female) (male); N94.6 Dysmenorrhea, unspecified; N85.2 Hypertrophy of uterus; N85.4 Malposition of uterus; R51.9 Headache, unspecified; R11.2 Nausea with vomiting, unspecified; F32.A Depression, unspecified; F41.9 Anxiety disorder, unspecified; Z79.899 Other long term (current) drug therapy; Z88.1 Allergy status to other antibiotic agents; Z98.51 Tubal ligation status; Z90.49 Acquired absence of other specified parts of digestive tract; Z98.890 Other specified postprocedural states
CPT/HCPCS: 57288; 58552; S2900; 81025; 85025; 86850; 86900; 86901; 88307

== ENCOUNTER 2024-05-29 07:29 | Emergency (ER) | payer MEDICAID, OTHER ==
[2024-05-29 07:36] VITALS: TEMP 97.9
[2024-05-29 07:46] VITALS: BP 120/60
--- NOTE | 2024-05-29 07:49 | ED ---
General Adult HPI - General Chief complaint: Chest Pain Stated complaint: Chest pain,Poss. UTI Time Seen by Provider: 05/29/24 07:30 Source: patient, RN notes reviewed, old records reviewed Mode of arrival: ambulatory Limitations: no limitations - History of Present Illness Initial comments: 38-year-old female presenting with lower abdominal discomfort, urinary frequency and urgency. Is been going on for several days. Patient has history of urinary incontinence and bladder sling. 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 She denies fever. She had reported a cough and some chest discomfort and she states she was exposed to RSV at her place of work. No difficulty breathing. Cough has improved. No nausea vomiting or diarrhea. - Related Data Home Medications Medication Instructions Recorded Confirmed Desvenlafaxine [Pristiq ER] 100 mg PO HS 08/07/20 06/16/22 Brexpiprazole [Rexulti] 2 mg PO DAILY 06/10/22 06/16/22 Methylphenidate HCl [Ritalin] 20 mg PO BID 06/10/22 06/16/22 Previous Rx's Medication Instructions Recorded oxyCODONE HCL [Roxicodone] 5 mg PO Q6HR PRN 3 Days #12 tab 06/18/22 Allergies Allergy/AdvReac Type Severity Reaction Status Date / Time erythromycin base Allergy Rash/Hives Verified 05/29/24 07:36 Review of Systems ROS Statement: Those systems with pertinent positive or pertinent negative responses have been documented in the HPI. ROS Other: All systems not noted in ROS Statement are negative. Past Medical History Past Medical History: No Reported History Additional Past Medical History / Comment(s): OVARIAN CYST. adenomyosis. abnormal uterine bleeding. anxiety, depression History of Any Multi-Drug Resistant Organisms: None Reported Past Surgical History: Cholecystectomy, Hysterectomy, Tubal Ligation Additional Past Surgical History / Comment(s): D & C, bladder sling, Past Anesthesia/Blood Transfusion Reactions: No Reported Reaction Past Psychological History: Anxiety, Depression Smoking Status: Vaper Past Alcohol Use History: None Reported Past Drug Use History: Marijuana - Past Family History Father Family Medical History: No Reported History General Exam Limitations: no limitations General appearance: alert, in no apparent distress Head exam: Present: atraumatic, normocephalic Eye exam: Present: normal appearance, PERRL ENT exam: Present: normal exam Neck exam: Present: normal inspection. Absent: tenderness, meningismus Respiratory exam: Present: normal lung sounds bilaterally. Absent: respiratory distress, wheezes Cardiovascular Exam: Present: regular rate, normal rhythm GI/Abdominal exam: Present: soft, tenderness (Suprapubic). Absent: distended, guarding, rebound Extremities exam: Present: normal inspection, normal capillary refill Back exam: Present: normal inspection Neurological exam: Present: alert, oriented X3, CN II-XII intact. Absent: motor sensory deficit Psychiatric exam: Present: normal affect, normal mood Skin exam: Present: warm, dry, intact. Absent: cyanosis, diaphoretic Course Vital Signs 05/29/24 05/29/24 05/29/24 07:31 07:36 07:55 Temperature 97.9 F Pulse Rate 90 66 Respiratory 18 16 20 Rate Blood Pressure 122/80 120/60 O2 Sat by Pulse 97 98 Oximetry Medical Decision Making - Medical Decision Making Was pt. sent in by a medical professional or institution (, PA, OFFICE RENTAL CLERK, urgent care, hospital, or senior living...) When possible be specific @ -No Did you speak to anyone other than the patient for history (EMS, parent, family, police, friend...)? What history was obtained from this source @ -No Did you review nursing and triage notes (agree or disagree)? Why? @ -I reviewed and agree with nursing and triage notes Were old charts reviewed (outside hosp., previous admission, EMS record, old EKG, old radiological studies, urgent care reports/EKG's, senior living records)? Report findings @ -No old charts were reviewed Differential Abdominal Pain Women: Appendicitis, Cholecystitis, diverticulosis, ischemic bowel, pancreatitis, hepatitis, UTI, gastroenteritis, AAA, incarcerated hernia, bowel obstruction, constipation, inflammatory bowel, hepatitis, peptic ulcer disease, splenic infarction, perforated viscus, vulvitis, ovarian torsion, PID, kidney stone, placenta abruption, this is not meant to be an all-inclusive list EKG interpreted by me (3pts min.). @Sinus rhythm rate of 70, PA interval 143, QRS duration 83, QTc [address] segment changes. X-rays interpreted by me (1pt min.). @ -Chest x-ray negative for acute cardiopulmonary findings. CT interpreted by me (1pt min.). @ -None done U/S interpreted by me (1pt. min.). @ -None done What testing was considered but not performed or refused? (CT, X-rays, U/S, labs)? Why? @ -None What meds were considered but not given or refused? Why? @ -None Did you discuss the management of the patient with other professionals (professionals i.e. Dr., PA, OFFICE RENTAL CLERK, lab, RT, psych nurse, addiction social worker, sign out clerk, teacher, fisheries enforcement officer, case liner)? Give summary @ -No Was smoking cessation discussed for >3mins.? @ -No Was critical care preformed (if so, how long)? @ -No Were there social determinants of health that impacted care today? How? (Homelessness, low income, unemployed, alcoholism, drug addiction, transportati on, low edu. Level, literacy, decrease access to med. care, snf, rehab)? @ -No Was there de-escalation of care discussed even if they declined (Discuss DNR or withdrawal of care, Hospice)? DNR status @ -No What co-morbidities impacted this encounter? (DM, HTN, Smoking, COPD, CAD, Cancer, CVA, ARF, Chemo, Hep., AIDS, mental health diagnosis, sleep apnea, morbid obesity)? @ -History of a bladder sling Was patient admitted / discharged? Hospital course, mention meds given and route, prescriptions, significant lab abnormalities, going to OR and other pertinent info. @ -38-year-old female with urinary frequency, dysuria, history of urinary incontinence, bladder sling who has been out of her medication oxybutynin. Patient afebrile well-appearing. Urinalysis is negative for infection. I did obtain laboratory test including CBC, CMP and viral panel because the patient had been exposed to RSV and was concerned about a cough that was currently resolved. Her x-ray was clear. This may be related to her known incontinence issue and I do recommend close follow-up with her cisco administrator. Additionally she is given return parameters for worsening symptoms of lower abdominal discomfort. Undiagnosed new problem with uncertain prognosis? @ -No Drug Therapy requiring intensive monitoring for toxicity (Heparin, Nitro, Insulin, Cardizem)? @ -No Were any procedures done? @ -No Diagnosis/symptom? @ -[Dysuria, urinary frequency Acute, or Chronic, or Acute on Chronic? @ -Acute on chronic Uncomplicated (without systemic symptoms) or Complicated (systemic symptoms)? @ -Default Side effects of treatment? @ -No Exacerbation, Progression, or Severe Exacerbation? @ -No Poses a threat to life or bodily function? How? (Chest pain, USA, LA, pneumonia, PE, COPD, DKA, ARF, appy, cholecystitis, CVA, Diverticulitis, Homicidal, Suicidal, threat to staff... and all critical care pts) @ -Low risk at this time - Lab Data Result diagrams: 05/29/24 08:28 05/29/24 08:28 Lab Results 05/29/24 05/29/24 05/29/24 Range/Units 07:38 07:38 07:46 WBC (3.8-10.6) k/uL RBC (3.80-5.40) m/uL Hgb (11.4-16.0) gm/dL Hct (34.0-46.0) % MCV (80.0-100.0) fL MCH (25.0-35.0) pg MCHC (31.0-37.0) g/dL RDW (11.5-15.5) % Plt Count (150-450) k/uL MPV Neutrophils % % Lymphocytes % % Monocytes % % Eosinophils % % Basophils % % Neutrophils # (1.3-7.7) k/uL Lymphocytes # (1.0-4.8) k/uL Monocytes # (0-1.0) k/uL Eosinophils # (0-0.7) k/uL Basophils # (0-0.2) k/uL Sodium (137-145) mmol/L Potassium (3.5-5.1) mmol/L Chloride (98-107) mmol/L Carbon Dioxide (22-30) mmol/L Anion Gap mmol/L BUN (7-17) mg/dL Creatinine (0.52-1.04) mg/dL Est GFR (CKD-EPI)AfAm (>60 ml/min/1.73 sqM) Est GFR (CKD-EPI)NonAf (>60 ml/min/1.73 sqM) Glucose (74-99) mg/dL Calcium (8.4-10.2) mg/dL Total Bilirubin (0.2-1.3) mg/dL AST (14-36) U/L ALT (4-34) U/L Alkaline Phosphatase (38-126) U/L Total Protein (6.3-8.2) g/dL Albumin (3.5-5.0) g/dL Urine Color Colorless Urine Appearance Clear (Clear) Urine pH 6.5 (5.0-8.0) Ur Specific Theresa 1.003 (1.001-1.035) Urine Protein Negative (Negative) Urine Glucose (UA) Negative (Negative) Urine Ketones Negative (Negative) Urine Blood Negative (Negative) Urine Nitrite Negative (Negative) Urine Bilirubin Negative (Negative) Urine Urobilinogen <2.0 (<2.0) mg/dL Ur Leukocyte Esterase Negative (Negative) Urine HCG, Qual Not Detected (Not Detectd) Influenza Type A (PCR) Not Detected (Not Detectd) Influenza Type B (PCR) Not Detected (Not Detectd) RSV (PCR) Not Detected (Not Detectd) SARS-CoV-2 (PCR) Not Detected (Not Detectd) 05/29/24 05/29/24 Range/Units 08:28 08:28 WBC 6.2 (3.8-10.6) k/uL RBC 4.40 (3.80-5.40) m/uL Hgb 12.8 (11.4-16.0) gm/dL Hct 39.7 (34.0-46.0) % MCV 90.2 (80.0-100.0) fL MCH 29.1 (25.0-35.0) pg MCHC 32.2 (31.0-37.0) g/dL RDW 13.4 (11.5-15.5) % Plt Count 235 (150-450) k/uL MPV 7.3 Neutrophils % 71 % Lymphocytes % 19 % Monocytes % 6 % Eosinophils % 2 % Basophils % 0 % Neutrophils # 4.4 (1.3-7.7) k/uL Lymphocytes # 1.2 (1.0-4.8) k/uL Monocytes # 0.4 (0-1.0) k/uL Eosinophils # 0.1 (0-0.7) k/uL Basophils # 0.0 (0-0.2) k/uL Sodium 139 (137-145) mmol/L Potassium 4.1 (3.5-5.1) mmol/L Chloride 111 H (98-107) mmol/L Carbon Dioxide 22 (22-30) mmol/L Anion Gap 6 mmol/L BUN 7 (7-17) mg/dL Creatinine 0.77 (0.52-1.04) mg/dL Est GFR (CKD-EPI)AfAm >90 (>60 ml/min/1.73 sqM) Est GFR (CKD-EPI)NonAf >90 (>60 ml/min/1.73 sqM) Glucose 100 H (74-99) mg/dL Calcium 8.6 (8.4-10.2) mg/dL Total Bilirubin 0.3 (0.2-1.3) mg/dL AST 15 (14-36) U/L ALT 21 (4-34) U/L Alkaline Phosphatase 80 (38-126) U/L Total Protein 6.4 (6.3-8.2) g/dL Albumin 3.7 (3.5-5.0) g/dL Urine Color Urine Appearance (Clear) Urine pH (5.0-8.0) Ur Specific Theresa (1.001-1.035) Urine Protein (Negative) Urine Glucose (UA) (Negative) Urine Ketones (Negative) Urine Blood (Negative) Urine Nitrite (Negative) Urine Bilirubin (Negative) Urine Urobilinogen (<2.0) mg/dL Ur Leukocyte Esterase (Negative) Urine HCG, Qual (Not Detectd) Influenza Type A (PCR) (Not Detectd) Influenza Type B (PCR) (Not Detectd) RSV (PCR) (Not Detectd) SARS-CoV-2 (PCR) (Not Detectd) Disposition Clinical Impression: Abdominal pain Disposition: HOME SELF-CARE Condition: Good Instructions (If sedation given, give patient instructions): Abdominal Pain (ED) Additional Instructions: Please follow closely with your cisco administrator. Please return with worsening lower abdominal pain or discomfort, fever, any new or concerning symptoms. Is patient prescribed a controlled substance at d/c from ED?: No Referrals: Anny Gates DO [Primary Care Provider] - 1-2 days Ruth Ann Caro MD [STAFF PHYSICIAN] - 1-2 days Time of Disposition: 09:23
[2024-05-29 08:07] LABS: Appearance,Urine Clear (Clear); Bilirubin,Urine Negative (Negative); Blood,Urine Negative (Negative); Color,Urine Colorless; Glucose,Urine (UA) Negative (Negative); Ketones,Urine Negative (Negative); Leukocyte Esterase,Urine Negative (Negative); Nitrite,Urine Negative (Negative); PH, Urine 6.5 (5.0-8.0); Protein,Urine Negative (Negative); Specific Gravity,Urine 1.003 (1.001-1.035); Urobilinogen,Urine <2.0 mg/dL (<2.0)
[2024-05-29 08:35] LABS: Basophils % (A) 0 %; Eosinophils # (A) 0.1 k/uL (0-0.7); Eosinophils % (A) 2 %; HCT 39.7 % (34.0-46.0); HGB 12.8 gm/dL (11.4-16.0); Lymphocytes # (A) 1.2 k/uL (1.0-4.8); Lymphocytes % (A) 19 %; MCH 29.1 pg (25.0-35.0); MCHC 32.2 g/dL (31.0-37.0); MCV 90.2 fL (80.0-100.0); Mean Platelet Volume 7.3; Monocytes # (A) 0.4 k/uL (0-1.0); Monocytes % (A) 6 %; Neutrophils # (A) 4.4 k/uL (1.3-7.7); Neutrophils % (A) 71 %; Platelet Count 235 k/uL (150-450); RDW 13.4 % (11.5-15.5); WBC 6.2 k/uL (3.8-10.6)
[2024-05-29 08:36] LABS: Influenza A Not Detected (Not Detectd); Influenza B Not Detected (Not Detectd); RSV Not Detected (Not Detectd)
[2024-05-29 08:53] LABS: ALT 21 U/L (4-34); AST 15 U/L (14-36); African American GFR (CKD) >90 (>60 ml/min/1.73 sqM); Albumin 3.7 g/dL (3.5-5.0); Alkaline Phosphatase 80 U/L (38-126); Anion Gap 6 mmol/L; Blood Urea Nitrogen 7 mg/dL (7-17); Calcium 8.6 mg/dL (8.4-10.2); Carbon Dioxide 22 mmol/L (22-30); Chloride 111 mmol/L (98-107); Glucose 100 mg/dL (74-99); Non-African American GFR(CKD) >90 (>60 ml/min/1.73 sqM); Potassium 4.1 mmol/L (3.5-5.1); Sodium 139 mmol/L (137-145); Total Bilirubin 0.3 mg/dL (0.2-1.3); Total Protein 6.4 g/dL (6.3-8.2)
--- NOTE | 2024-05-29 09:19 | XR ---
EXAMINATION TYPE: XR chest 2V DATE OF EXAM: 05/29/2024 CLINICAL INDICATION: Female, 38 years old with history of CP, TECHNIQUE: Frontal and lateral views of the chest are obtained. COMPARISON: Chest x-ray April 25, 2021 FINDINGS: There is no focal air space opacity, pleural effusion, or pneumothorax seen. The cardiac silhouette size is stable and within normal limits. The osseous structures are intact. Overlying bi lateral metallic nipple ornaments are redemonstrated. IMPRESSION: No acute process. [facility], , 05/29/2024 9:16 AM
[2024-05-29 09:30] VITALS: PULSE 85; RESP 16
== END 2024-05-29 09:30 | disposition home or self-care (01) ==
LOC: EC 07:29
DX: R10.32 Left lower quadrant pain (principal); R30.0 Dysuria; R35.0 Frequency of micturition; F17.290 Nicotine dependence, other tobacco product, uncomplicated; Z88.1 Allergy status to other antibiotic agents; Z96.0 Presence of urogenital implants
CPT/HCPCS: 36415; 71046; 80053; 81003; 81025; 85025; 87636; 99285

== ENCOUNTER → 2024-07-20 | Outpatient (CLI) | payer MEDICAID, OTHER ==
[2024-07-21 00:28] LABS: HIV 2 AB Non-Reactive (Non-Reactive); HIV AB P24 Non-Reactive (Non-Reactive); HIV P24 AG Non-Reactive (Non-Reactive)
== END | disposition home or self-care (01) ==
LOC: LABWHC1 12:46
PROVIDERS: ATTEND Family Medicine
DX: Z20.2 Contact with and (suspected) exposure to infections with a predominantly sexual mode of transmission (principal)
CPT/HCPCS: 36415; 86780; 87390; 87491; 87591